=== PATIENT | male | born 1945 | race Caucasian/White ===

== ENCOUNTER 2016-08-07 11:42 | Emergency (ER) | payer OTHER ==
[~2016-08-07] VITALS: Ht 165.1 cm; Wt 73.5 kg
[~2016-08-07 11:42] MED LIST: ASPI81EC98 PO; ISOS10TA9 PO; LOSA25TA1 PO; METF500T PO; METO25TA3 PO; SIMV5TAB1 PO
[2016-08-07 11:49] VITALS: BP 114/63
--- NOTE | 2016-08-07 12:19 | NUR ---
PATIENT PRESENTS TO ED FOR FOLLOW-UP OF RIGHT 5TH FINGER SUTURES . PT STATES HE HAS MINIMAL AMOUNT OF DISCOMFORT AT THIS TIME . DENIES N/V/D; SUTURES NOTED TO RIGHT 5TH FINGER, SKIN IS OTHERWISE PINK/WARM/DRY; AAOX4 WITH EVEN AND STEADY GAIT; LUNGS CLEAR BL; HR EVEN AND REGULAR; PT DENIES ANY FEVER, CP, SOB, OR COUGH AT THIS TIME; PATIENT STATES PAIN OF 4/10 AT THIS TIME; VSS; PATIENT POSITIONED FOR COMFORT; HOB ELEVATED; BEDRAILS UP X2; BED DOWN. ER MD MADE AWARE OF PT STATUS.
--- NOTE | 2016-08-07 12:26 | NUR ---
Patient being evaluated by Dr. Middleton at bedside.
[2016-08-07 12:57] VITALS: BP 114/63
--- NOTE | 2016-08-07 12:57 | NUR ---
Patient discharged with v/s stable. Written and verbal after care instructions given and explained. Patient verbalized understanding. Ambulatory with steady gait. All questions addressed prior to discharge. Advised to follow up with PMD.
--- NOTE | 2016-08-07 12:58 | NUR ---
CLEAN 4X4 GAUZE PLACED OVER WOUND---
== END 2016-08-07 12:57 | disposition home or self-care (01) ==
LOC: MED 11:42
DX: S61.216D Laceration without foreign body of right little finger without damage to nail, subsequent encounter (principal); I10 Essential (primary) hypertension; E11.9 Type 2 diabetes mellitus without complications; X58.XXXD Exposure to other specified factors, subsequent encounter; Y92.89 Other specified places as the place of occurrence of the external cause; Y99.8 Other external cause status
CPT/HCPCS: 82948; 99282